=== PATIENT | female | born 1965 | race African-American/Black ===

== ENCOUNTER → 2016-11-19 | Outpatient (CLI) | payer BC | LOC: FIMAGING 14:19 | DX: Z12.31 Encounter for screening mammogram for malignant neoplasm of breast (principal) | CPT/HCPCS: G0202 ==

== ENCOUNTER → 2017-12-02 | Outpatient (CLI) | payer BC | LOC: FIMAGING 09:16 | PROVIDERS: ATTEND Registered Nurse General Practice | DX: E04.2 Nontoxic multinodular goiter (principal) ==

== ENCOUNTER → 2018-01-28 | Outpatient (CLI) | payer BC ==
[~2018-01-28] MED LIST: LIDOCAINE 1% 300 MG/30 ML SDV ONE
--- NOTE | 2018-01-28 16:54 | PDRADPN ---
Radiology Procedure Note Date of Procedure: 01/28/18 Radiologist: Travis Thomas Anesthesia: Local (Specify) Pre-op Diagnosis: multinodular goiter Post-op Diagnosis: same Indication: increased volume of dominant nodule Procedure: FNA right thyroid 5.7cm nodule Finding(s): large cystic/solid nodule with variable density sampled with six 25G needles. specimens adequate. Inf/Abcess present in the surg proc area at time of surgery?: No EBL: Minimal Complications: none Specimen(s): yes
== END ==
LOC: FIMAGING 12:29
PROVIDERS: ATTEND Physician Assistant
PROC: 0G9H3ZX Drainage of Right Thyroid Gland Lobe, Percutaneous Approach, Diagnostic (ICD-10-PCS; principal; 2018-01-28)
DX: E04.2 Nontoxic multinodular goiter (principal)

== ENCOUNTER 2018-09-05 11:20 | Day surgery (SDC) | payer BC ==
[~2018-09-05 11:20] MED LIST changes: -LIDOCAINE 1% 300 MG/30 ML SDV ONE; +traMADol 50 MG TAB PO SCH
--- NOTE | 2018-09-05 12:05 | EDPHY ---
HPI/HX/ROS/PE/MDM Narrative: CHIEF COMPLAINT: RLQ abdominal pain HPI: The patient is a 53 y/o female with a history of goiter and uterine fibroids complaining of persistent RLQ abdominal pain that began last night. This morning she had pain along her right lower back as well. She's had cold symptoms including fatigue, sore throat, and rhinorrhea for the last 5 days that she is treating with "homeopathic stuff." She denies cough, fever, urinary symptoms, vomiting, diarrhea. No abdominal surgical history. REVIEW OF SYSTEMS: A comprehensive 10 system review of systems is otherwise negative aside from elements mentioned in the history of present illness. PMH: Multinodular goiter, uterine fibroids. SOCIAL HISTORY: . Lives in [place]. Employed. PHYSICAL EXAM: General:Patient is alert, in no acute distress. ENT:Eyes are normal to inspection. ENT inspection normal. Neck: Normal inspection. Full range of motion. Respiratory:No respiratory distress. Breath sounds normal bilaterally. Cardiovascular: Regular rate and rhythm. Strong peripheral pulses. Normal cap refill. Abdomen:The abdomen has moderate RLQ tenderness to palpation. There are no peritoneal signs. Back: Normal to inspection. No tenderness to palpation. Skin: Normal color. No rash. Warm and dry. Extremities: Normal appearance. Full range of motion. Neuro: Oriented x3. Normal motor function. Normal sensory function. ED Course: This is a 53 y/o female who presents with less than 24-hour history of RLQ abdominal pain and lower back pain in the setting of cold symptoms for the last 5 days. She has moderate RLQ tenderness on exam. She is afebrile. Plan for IV, labs, flu swab, UA. 1L IV NS ordered. Abdominal CT: abnormal appendix, but not definitively appendicitis 1345: Consulted with Dr. Gallardo, surgery. She will assess patient in the ED. Dr. Gallardo assessed patient and suspects early appendicitis. Patient is deciding if she wants to proceed with surgery vs. treat with antibiotics and observe. 1423: Dr. Gallardo will admit patient to surgical service. - Data Points Imaging Results: Imaging Impressions Abdomen CT 09/05/18 13:09 Impression: 1. Equivocal for early tip appendicitis. 2. Constipation. No obstruction or ileus. 3. Uterine leiomyomas. No ovarian cyst or free fluid in the pelvis. 4. Right nephrolithiasis. No hydronephrosis or ureteral calculi. Findings discussed with emergency department physician, Marcelino Ortiz MD on September 05, 2018 at 1:44 p.m. Laboratory Results: Laboratory Results 09/05/18 11:53 09/05/18 11:53 09/05/18 09/05/18 09/05/18 12:35 12:24 11:53 WBC RBC Hgb Hct MCV MCH MCHC RDW Plt Count MPV Neut % (Auto) Lymph % (Auto) [place] % (Auto) Eos % (Auto) Baso % (Auto) Nucleat RBC Rel Count Absolute Neuts (auto) Absolute Lymphs (auto) Absolute Monos (auto) Absolute Eos (auto) Absolute Basos (auto) Absolute Nucleated RBC Immature Gran % Immature Gran # Sodium 141 mEq/L mEq/L (135-145) Potassium 4.3 mEq/L mEq/L (3.5-5.2) Chloride 110 mEq/L mEq/L (97-110) Carbon Dioxide 24 mEq/l mEq/l (22-31) Anion Gap 7 mEq/L mEq/L (6-14) BUN 15 mg/dL mg/dL (7-23) Creatinine 0.8 mg/dL mg/dL (0.6-1.0) Estimated GFR > 60 Glucose 93 mg/dL mg/dL (70-100) Calcium 9.8 mg/dL mg/dL (8.5-10.4) Urine Color YELLOW Urine Appearance HAZY Urine pH 6.0 (5.0-7.5) Ur Specific [place] 1.021 (1.002-1.030) Urine Protein NEGATIVE (NEGATIVE) Urine Ketones NEGATIVE (NEGATIVE) Urine Blood NEGATIVE (NEGATIVE) Urine Nitrate NEGATIVE (NEGATIVE) Urine Bilirubin NEGATIVE (NEGATIVE) Urine Urobilinogen NEGATIVE EU EU (0.2-1.0) Ur Leukocyte Esterase TRACE H (NEGATIVE) Urine RBC 1-3 /hpf /hpf (0-3) Urine WBC 5-10 /hpf H /hpf (0-3) Ur Epithelial Cells TRACE /lpf /lpf (NONE-1+) Urine Mucus TRACE /lpf /lpf (NONE-1+) Urine Glucose NEGATIVE (NEGATIVE) Nasal Influenza A PCR NEGATIVE FOR FLU A (NEGATIVE) Nasal Influenza B PCR NEGATIVE FOR FLU B (NEGATIVE) 09/05/18 11:53 WBC 8.19 10^3/uL 10^3/uL (3.80-9.50) RBC 5.38 10^6/uL H 10^6/uL (4.18-5.33) Hgb 15.0 g/dL g/dL (12.6-16.3) Hct 41.8 % % (38.0-47.0) MCV 77.7 fL L fL (81.5-99.8) MCH 27.9 pg pg (27.9-34.1) MCHC 35.9 g/dL g/dL (32.4-36.7) RDW 14.1 % % (11.5-15.2) Plt Count 240 10^3/uL 10^3/uL (150-400) MPV 9.7 fL fL (8.7-11.7) Neut % (Auto) 63.5 % % (39.3-74.2) Lymph % (Auto) 24.9 % % (15.0-45.0) [place] % (Auto) 9.3 % % (4.5-13.0) Eos % (Auto) 1.6 % % (0.6-7.6) Baso % (Auto) 0.5 % % (0.3-1.7) Nucleat RBC Rel Count 0.0 % % (0.0-0.2) Absolute Neuts (auto) 5.20 10^3/uL 10^3/uL (1.70-6.50) Absolute Lymphs (auto) 2.04 10^3/uL 10^3/uL (1.00-3.00) Absolute Monos (auto) 0.76 10^3/uL 10^3/uL (0.30-0.80) Absolute Eos (auto) 0.13 10^3/uL 10^3/uL (0.03-0.40) Absolute Basos (auto) 0.04 10^3/uL 10^3/uL (0.02-0.10) Absolute Nucleated RBC 0.00 10^3/uL 10^3/uL (0-0.01) Immature Gran % 0.2 % % (0.0-1.1) Immature Gran # 0.02 10^3/uL 10^3/uL (0.00-0.10) Sodium Potassium Chloride Carbon Dioxide Anion Gap BUN Creatinine Estimated GFR Glucose Calcium Urine Color Urine Appearance Urine pH Ur Specific [place] Urine Protein Urine Ketones Urine Blood Urine Nitrate Urine Bilirubin Urine Urobilinogen Ur Leukocyte Esterase Urine RBC Urine WBC Ur Epithelial Cells Urine Mucus Urine Glucose Nasal Influenza A PCR Nasal Influenza B PCR Medications Given: Discontinued Medications Sodium Chloride (Ns) 1,000 mls @ 0 mls/hr IV EDNOW ONE; Wide Open PRN Reason: Protocol Stop: 09/05/18 12:07 Last Admin: 09/05/18 12:33 Dose: 1,000 mls General Time Seen by Provider: 09/05/18 11:43 Initial Vital Signs: Initial Vital Signs Temperature (C) 36.9 C 09/05/18 11:22 Heart Rate 76 09/05/18 11:22 Respiratory Rate 16 09/05/18 11:22 Blood Pressure 146/80 H 09/05/18 11:22 O2 Sat (%) 96 09/05/18 11:22 O2 Delivery Mode Room Air Allergies/Adverse Reactions: codeine Allergy (Severe, Verified 09/05/18 11:26) closes throat Penicillins Allergy (Intermediate, Verified 09/05/18 11:26) Hives Home Medications: Medication Instructions Recorded NK [No Known Home Meds] 08/23/14 Departure - Departure Disposition: [facility] Inpatient Acute Clinical Impression: Acute appendicitis Qualifiers: Acute appendicitis type: with localized peritonitis Appendicitis gangrene presence: without gangrene Appendicitis perforation presence: without perforation Appendicitis abscess presence: without abscess Qualified Code(s): K35.30 - Acute appendicitis with localized peritonitis, without perforation or gangrene Condition: Fair Referrals: Emmy Griggs PA [Primary Care Provider] - As per Instructions Report Scribed for: Marcelino Ortiz Report Scribed by: Jacquie Hurtado Date of Report: 09/05/18 Time of Report: 11:59 Physician Review and Approval Statement: Portions of this note were transcribed by an ED scribe. I personally performed the history, physical exam, and medical decision making; and confirm the accuracy of the information in the transcribed note.
[2018-09-05] MEDS ORDERED: NS 1,000 ML IV ONE (12:06)
[2018-09-05 12:31] LABS: PLATELET COUNT 240 10^3/uL (150-400)
[2018-09-05] MEDS ORDERED: IOPAMIDOL (ISOVUE 370) 100 ML BTL IV ONE (13:11)
--- NOTE | 2018-09-05 14:55 | GCON ---
DATE OF CONSULTATION: 09/05/2018 CHIEF COMPLAINT: Right lower quadrant abdominal pain. HISTORY OF PRESENT ILLNESS: The patient is a 53-year-old woman who developed right lower quadrant pain approximately 12 hours ago. The pain has worsened and also associated back pain. She is not hungry. She does not have nausea or vomiting. She has had cold symptoms for about 5 days, including fatigue, sore throat, and a runny nose. PAST MEDICAL HISTORY: Multinodular goiter, uterine fibroids. PAST SURGICAL HISTORY: No abdominal surgery. SOCIAL HISTORY: She is and lives in [place]. She does not smoke. REVIEW OF SYSTEMS: She denies fevers, chills, urinary symptoms, vomiting, diarrhea. FAMILY HISTORY: Noncontributory. PHYSICAL EXAM: VITAL SIGNS: 36.9, 76, 146/80, 16, 96% room air. GENERAL: Pleasant woman, appears ill, sitting up on gurney. HEENT: Normocephalic. Mask in place. No gross hearing deficits. Pupils equal and round. No scleral icterus. LUNGS: Clear to auscultation bilaterally. No increased work of breathing. CARDIAC: Regular rate. ABDOMEN: Bowel sounds present. Soft. Tender over McBurney's point. SKIN: Warm and dry. MUSCULOSKELETAL: Normal nails. NEURO: Grossly intact. PSYCH: Mood and affect normal. LABORATORY/IMAGING: Reviewed. White blood cell count is normal. I personally reviewed her CT scan, which shows an enlarged appendix; however, there is air throughout the lumen and obliteration of the distal tip. IMPRESSION/PLAN: The patient is a 53-year-old woman with upper respiratory symptoms and an enlarged appendix. She has a normal white count. I do not think that the distal tip of the appendix is inflamed due to the respiratory symptoms. We discussed laparoscopic appendectomy versus watchful waiting or watchful waiting with a course of antibiotics. We discussed that her appendix is enlarged; however there is air throughout the majority of the lumen. I discussed the risks and benefits of surgery, including possible negative pathologic findings, infection, bleeding, damage to surrounding structures. I discussed that this does require general anesthesia and while she is sick, can make the recovery a bit more difficult. She is discussing what she would like to do with her . We will proceed with laparoscopic appendectomy /[id number]/MODL MTDD
--- NOTE | 2018-09-05 16:06 | PDANEPAE ---
ANE History of Present Illness laparoscopic appendectomy. ANE Past Medical History - Cardiovascular History Hx Hypertension: No Hx Arrhythmias: No Hx Chest Pain: No Hx Coronary Artery / Peripheral Vascular Disease: No Hx CHF / Valvular Disease: No Hx Palpitations: No - Pulmonary History Hx COPD: No Hx Asthma/Reactive Airway Disease: No Hx Recent Upper Respiratory Infection: Yes Hx Oxygen in Use at Home: No Hx Sleep Apnea: No - Endocrine History Hx Diabetes: No Hypothyroid: No Hyperthyroid: No Obesity: no Endocrine History Comment: hx of goiter - Renal History Hx Renal Disorders: No - Liver History Hx Hepatic Disorders: No - Neurological & Psychiatric Hx Hx Neurological and Psychiatric Disorders: No - Cancer History Hx Cancer: No - GI History GERD: no Hx Gastrointestinal Disorders: Yes - Surgical History Prior Surgeries: RC repair ANE Review of Systems Review of Systems: - Exercise capacity METS (RN): 4 METS ANE Patient History - Allergies Allergies/Adverse Reactions: codeine Allergy (Severe, Verified 09/05/18 11:26) closes throat Penicillins Allergy (Intermediate, Verified 09/05/18 11:26) Hives - Home Medications Home Medications: Herbals/Supplements -Info Only 1 ea PO DAILY 09/05/18 [Last Taken 09/04/18] - NPO status NPO Since - Liquids (Date): 09/05/18 NPO Since - Liquids (Time): 01:00 NPO Since - Solids (Date): 09/04/18 NPO Since - Solids (Time): 20:00 - Anes Hx Anes Hx: no prior problems - Smoking Hx Smoking Status: Never smoked Marijuana use: No - Alcohol Use Alcohol Use: None - Family Anes Hx Family Anes Hx: none ANE Labs/Vital Signs - Labs Result Diagrams: 09/05/18 11:53 09/05/18 11:53 - Vital Signs Blood Pressure: 124/79 Heart Rate: 62 Respiratory Rate: 16 O2 Sat (%): 100 Height: 172.72 cm Weight: 68.492 kg ANE Physical Exam - Airway Neck exam: FROM Mouth exam: normal dental/mouth exam - Pulmonary Pulmonary: clear to auscultation - Cardiovascular Cardiovascular: regular rate and rhythym - ASA Status ASA Status: II, E
[2018-09-05] MEDS ORDERED: MIDAZOLAM 2 MG/2 ML VIAL IVP ONE (16:09)
[2018-09-05] MEDS ORDERED: PROPOFOL 200 MG/20 ML VIAL ONE (16:15)
[2018-09-05] MEDS ORDERED: ROCURONIUM 50 MG/5 ML VIAL ONE (16:15)
[2018-09-05] MEDS ORDERED: DEXAMETHASONE 4 MG/ML VIAL ONE (16:15)
[2018-09-05] MEDS ORDERED: fentaNYL 250 MCG/5 ML INJ ONE (16:15)
[2018-09-05] MEDS ORDERED: BUPIVACAINE 0.5% 30 ML SDV ONE (16:19)
[2018-09-05] MEDS ORDERED: MIDAZOLAM 2 MG/2 ML VIAL ONE (16:23)
[2018-09-05] MEDS ORDERED: ONDANSETRON 4 MG/2 ML VIAL ONE (16:55)
[2018-09-05] MEDS ORDERED: SUGAMMADEX SODIUM 200 MG/2 ML VIAL IVP ONE (16:57)
[2018-09-05] MEDS ORDERED: NALOXONE HCL 0.4 MG/ML INJ IVP PRN (17:02)
[2018-09-05] MEDS ORDERED: ONDANSETRON 4 MG/2 ML VIAL IVP PRN (17:02)
[2018-09-05] MEDS ORDERED: fentaNYL 100 MCG/2 ML INJ IVP PRN (17:02)
[2018-09-05] MEDS ORDERED: oxyCODONE IR 5 MG TAB PO PRN (17:02)
--- NOTE | 2018-09-05 17:07 | POSTOPPROG ---
Post Op Note Date of Operation: 09/05/18 Surgeon: Mirela Gallardo Anesthesiologist: umm Anesthesia: GET(General Endotracheal) Pre-op Diagnosis: appendicitis Post-op Diagnosis: same Indication: 53 yo with RLQ pain and enlarged appendix Procedure: lap appy Findings: inflamed tip Inf/Abcess present in the surg proc area at time of surgery?: No EBL: Minimal Specimen(s): appendix
--- NOTE | 2018-09-05 17:18 | POSTANESTH ---
Post Anesthetic Evaluation Cardiovascular Status: Normal, Stable Respiratory Status: Similar to Pre-op Cond. Level of Consciousness/Mental Status: Can Participate in Eval Pain Control: Adequate, Prn Tx Ordered Nausea/Vomiting Control: Adequate, Prn Tx Ordered Complications Possibly Related to Anesthesia: None Noted
--- NOTE | 2018-09-05 18:11 | GOP ---
DATE OF OPERATION: 09/05/2018 SURGEON: Mirela Gallardo MD ANESTHESIA: General. ANESTHESIOLOGIST: Rui Feldman MD. PREOPERATIVE DIAGNOSIS: Appendicitis. POSTOPERATIVE DIAGNOSIS: Appendicitis. PROCEDURE PERFORMED: Laparoscopic appendectomy. FINDINGS: Tip of the appendix, inflamed, otherwise long, but normal. SPECIMENS: Appendix. ESTIMATED BLOOD LOSS: 5 cc. INDICATIONS: The patient is a 53-year-old woman who presented with abrupt onset of right lower quadrant pain. CT demonstrated an appendix enlarged at 10 mm and the tip inflamed, but the rest of the appendix appeared fairly normal. DESCRIPTION OF PROCEDURE: Patient was brought into the operating room, placed supine on the table, and general anesthesia was administered. Her abdomen was prepped and draped in the usual sterile fashion. I infiltrated all sites with 0.5% Marcaine prior to making incisions. Made an incision at her umbilicus. I elevated it. I inserted the Veress needle. It passed the hanging drop test. Her abdomen insufflated easily to a pressure of 15 mmHg. I placed a 5 mm trocar with a camera at this site. There were no injuries from Veress needle placement. Under direct vision, I placed a 5 mm suprapubic trocar and a 10 mm trocar in the left lower quadrant. I elevated her appendix. I divided the mesoappendix with the Harmonic Scalpel. I divided the base with an Endo-DIVINE 45 white load. Hemostasis achieved at the staple line. It was placed in an EndoCatch bag and retrieved via the 10 mm trocar. I explored the abdomen. No injuries noted. Abdomen allowed to desufflate. I removed the trocars under direct vision. The fascia was closed at the 10 mm trocar site with 0 Vicryl. Skin closed with 4-0 Monocryl. Dermabond applied. She was awakened in the operating room, extubated, transferred to PACU in stable condition. /[id number]/MODL MTDD
[2018-09-05 20:13] VITALS: BP 121/66
== END 2018-09-05 20:13 | disposition home or self-care (01) ==
LOC: UNDOADMOB 14:26 → FSGY 14:26 → UNDODISOB 20:13
PROVIDERS: ATTEND Surgery
PROC: 0DTJ4ZZ Resection of Appendix, Percutaneous Endoscopic Approach (ICD-10-PCS; principal; 2018-09-05 16:30)
DX: K35.80 Unspecified acute appendicitis (principal); E04.2 Nontoxic multinodular goiter; D25.9 Leiomyoma of uterus, unspecified; N20.0 Calculus of kidney; Z88.0 Allergy status to penicillin
CPT/HCPCS: 96365; J1100; J2250; J2405; J2704; J3010; Q9967